=== PATIENT | female | born 1935 | race Caucasian/White ===

== ENCOUNTER 2018-09-03 18:22 | Emergency (ER) | payer MEDICARE, BC ==
[~2018-09-03] VITALS: Ht 160 cm; Wt 54.4 kg
[~2018-09-03 18:22] MED LIST: ANTIDEPRESSANT; ATEN50TA PO; PRED1TAB PO
--- NOTE | 2018-09-03 18:40 | NUR ---
Pt is unable to recall complete information about her home medications at this time.
--- NOTE | 2018-09-03 19:03 | NUR ---
PT IS IN ROOM ##2B. DR MARTINEZ EVALUATED THE PT.
[2018-09-03 19:10] LABS: BASOPHILS % (AUTO) 1.1 % (0.0-2.0); EOSINOPHILS # (AUTO) 0.1 K/uL (0.0-0.7); EOSINOPHILS % (AUTO) 1.6 % (0.0-7.0); HEMATOCRIT 40.4 % (31.2-41.9); HEMOGLOBIN 13.3 g/dL (10.9-14.3); LYMPHOCYTES # (AUTO) 1.5 K/uL (20.0-40.0); LYMPHOCYTES % (AUTO) 36.9 % (20.5-51.5); MEAN CORPUSCULAR HEMOGLOBIN 31.4 uug (24.7-32.8); MEAN CORPUSCULAR HGB CONC 33 g/dL (32.3-35.6); MEAN CORPUSCULAR VOLUME 95.3 fL (75.5-95.3); MONOCYTES # (AUTO) 0.8 K/uL (2.0-10.0); MONOCYTES % (AUTO) 18.2 % (0.0-11.0); NEUTROPHILS # (AUTO) 1.7 K/uL (1.8-8.9); NEUTROPHILS % (AUTO) 42.2 % (38.5-71.5); PLATELET COUNT (AUTO) 161 K/uL (179-408); RED BLOOD CELL COUNT(AUTO) 4.24 MIL/uL (3.63-4.92); WHITE BLOOD COUNT (AUTO) 4.1 K/uL (3.8-11.8)
[2018-09-03 19:19] LABS: CARBON DIOXIDE 24 mmol/L (21-32); CHLORIDE 106 mmol/L (98-107); CREATININE 1.4 mg/dL (0.6-1.3); GLUCOSE 82 mg/dL (74-106); UREA NITROGEN, BLOOD 20 mg/dL (7-18)
[2018-09-03 19:24] LABS: ALANINE AMINOTRANSFERASE 23 U/L (14-59); ALKALINE PHOSPHATASE 43 U/L (50-136); ASPARTATE AMINOTRANSFERASE 22 U/L (15-37); BILIRUBIN,DIRECT 0.1 mg/dL (0.0-0.2); BILIRUBIN,TOTAL 0.6 mg/dL (0.2-1.0); LIPASE 198 U/L (73-393)
[2018-09-03 19:38] LABS: BAND % (MANUAL) 2 % (0-10)
[2018-09-03 19:39] LABS: EOSINOPHILS % (MANUAL) 1 % (0-8); LYMPHOCYTES % (MANUAL) 39 % (20-40); MONOCYTES % (MANUAL) 16 % (2-10); NEUTROPHILS % (MANUAL) 42 % (42-75)
[2018-09-03 19:42] LABS: *BILIRUBIN,URIN NEGATIVE (NEGATIVE); *BLOOD, URINE NEGATIVE (NEGATIVE); *CLARITY,URINE CLEAR (CLEAR); *COLOR,URINE YELLOW (YELLOW); *KETONES,URINE NEGATIVE (NEGATIVE); *UROBILINOGEN,URINE 0.2 E.U./dl (NORMAL); LEUKOCYTE ESTERASE ,URINE NEGATIVE (NEGATIVE); NITRITE, URINE NEGATIVE (NEGATIVE); PH,URINE 5.5 (5.0-8.0); UGLUCOSE NEGATIVE (NEGATIVE)
--- NOTE | 2018-09-03 19:57 | NUR ---
Patient in bed resting, NAD.
--- NOTE | 2018-09-03 20:11 | NUR ---
Spoke to Dede from [facility] regarding CT results for patient. She stated she will put image on the hotline for Radiologist to review and publish.
--- NOTE | 2018-09-03 20:53 | NUR ---
Female bartender accompanied female patient for Dr. Bangura for exam.
[2018-09-03 21:16] VITALS: BP 140/63
--- NOTE | 2018-09-03 21:16 | NUR ---
Patient discharged to home in stable conditon. Written and verbal after care instructions given. Patient verbalizes understanding of instructions. Patient ambulated with stable gait.
== END 2018-09-03 21:17 | disposition home or self-care (01) ==
LOC: ER 18:22
DX: K64.9 Unspecified hemorrhoids (principal); N28.1 Cyst of kidney, acquired; K92.1 Melena; I10 Essential (primary) hypertension; Z79.899 Other long term (current) drug therapy
CPT/HCPCS: 36415; 83690; 85025; A4663

== ENCOUNTER 2021-10-27 17:21 | Emergency (ER) | payer MEDICARE, BC ==
[~2021-10-27] VITALS: Ht 160 cm; Wt 56.7 kg
--- NOTE | 2021-10-27 17:34 | NUR ---
at bedside to examine pt.
[2021-10-27 17:52] LABS: HEMATOCRIT 32.9 % (31.2-41.9); MEAN CORPUSCULAR HEMOGLOBIN 33.2 uug (24.7-32.8); MEAN CORPUSCULAR VOLUME 96.8 fL (75.5-95.3); PLATELET COUNT (AUTO) 182 K/uL (179-408)
[2021-10-27 18:08] LABS: ALANINE AMINOTRANSFERASE 16 U/L (14-59); ALKALINE PHOSPHATASE 53 U/L (50-136); ASPARTATE AMINOTRANSFERASE 21 U/L (15-37); BILIRUBIN,DIRECT 0.2 mg/dL (0.0-0.2); BILIRUBIN,TOTAL 1.1 mg/dL (0.2-1.0); CARBON DIOXIDE 26 mmol/L (21-32); CHLORIDE 100 mmol/L (98-107); CREATININE 1.7 mg/dL (0.6-1.3); GLUCOSE 91 mg/dL (74-106); LIPASE 228 U/L (73-393); POTASSIUM 3.3 mmol/L (3.5-5.1); TOTAL PROTEIN, SERUM 7.4 g/dL (6.4-8.2); UREA NITROGEN, BLOOD 15 mg/dL (7-18)
[2021-10-27 18:10] LABS: NEUTROPHILS % (MANUAL) 0 % (42-75)
[2021-10-27] MEDS ORDERED: MORPHINE SULFATE 2 MG/1 ML DISP.SYRIN ONE (18:25)
[2021-10-27] MEDS ORDERED: ONDANSETRON 4 MG/2 ML VIAL ONE (18:25)
--- NOTE | 2021-10-27 18:30 | NUR ---
bladder scan 257ml. notified.
[2021-10-27] MEDS ORDERED: MORPHINE SULFATE 2 MG/1 ML DISP.SYRIN IV ONE (19:00)
[2021-10-27] MEDS ORDERED: ONDANSETRON 4 MG/2 ML VIAL IV ONE (19:00)
[2021-10-27] MEDS ORDERED: POTASSIUM BICARBONATE/CIT AC 25 MEQ TABLET.EFF PO ONE (19:00)
--- NOTE | 2021-10-27 19:10 | NUR ---
Report give to incoming shift.
[2021-10-27] MEDS ORDERED: POTASSIUM BICARBONATE/CIT AC 25 MEQ TABLET.EFF ONE (19:29)
[2021-10-27] MEDS ORDERED: MORPHINE SULFATE 4 MG/1 ML DISP.SYRIN IV ONE (20:15)
[2021-10-27] MEDS ORDERED: MORPHINE SULFATE 4 MG/1 ML DISP.SYRIN ONE (20:24)
--- NOTE | 2021-10-27 20:30 | NUR ---
Inserted a 16 fringe mcduffie as patient requested.
[2021-10-27 20:35] LABS: *BILIRUBIN,URIN NEGATIVE (NEGATIVE); *BLOOD, URINE 2+ (NEGATIVE); *CLARITY,URINE CLEAR (CLEAR); *COLOR,URINE YELLOW (YELLOW); *KETONES,URINE 2+ (NEGATIVE); *UROBILINOGEN,URINE 0.2 E.U./dl (NORMAL); LEUKOCYTE ESTERASE ,URINE NEGATIVE (NEGATIVE); NITRITE, URINE POSITIVE (NEGATIVE); UGLUCOSE NEGATIVE (NEGATIVE)
[2021-10-27] MEDS ORDERED: MAGNESIUM SULFATE/D5W 200 ML ONE (20:46)
[2021-10-27] MEDS: MAGNESIUM SULFATE/D5W 100 ML IV SCH ×2 (20:51→22:26)
[2021-10-27 21:09] LABS: BACTERIA,URINE FEW /HPF (NONE SEEN); RBC,URINE 50-80 /HPF (0-3); SQUAMOUS EPITHELIAL CELL,UR NONE SEEN /HPF (NONE SEEN)
[2021-10-27] MEDS ORDERED: CEFTRIAXONE 1 G in IV DEXTROSE 5% 50 ML IV ONE (21:30)
[2021-10-27] MEDS ORDERED: CEFTRIAXONE /D5W 50ML IVPB **ER PYXIS IV ONE (21:37)
[2021-10-28] MEDS ORDERED: SULF1TAB48 PO (01:06)
[2021-10-28] MEDS ORDERED: OXYC-128 PO (01:06)
--- NOTE | 2021-10-28 02:00 | NUR ---
Coverted indwelling catheter to leg bag as patient requested.
--- NOTE | 2021-10-28 02:12 | NUR ---
IV removed. Catheter intact and site benign. Pressure and 4x4 gauze applied to site. No bleeding noted.
--- NOTE | 2021-10-28 02:16 | NUR ---
Patient discharged to home in stable condition with son taking patient home. Written and verbal after care instructions given. Patient verbalizes understanding of instructions. Stressed follow up or return to ER for worsening s/s.
[2021-10-28 02:17] VITALS: BP 138/82
== END 2021-10-28 02:17 | disposition home or self-care (01) ==
LOC: ER 17:48
DX: N39.0 Urinary tract infection, site not specified (principal); I10 Essential (primary) hypertension; M35.3 Polymyalgia rheumatica; Z98.890 Other specified postprocedural states; N32.9 Bladder disorder, unspecified
CPT/HCPCS: 99284; 74176; 96365; 96375; 96366; 80076; 80048; 81001; 83690; 83735; 85025; 87086; 36415; 96368; 96376; 85007; J0696; J3475; J2405; J2270 ×2; 70030-TC; A4663